=== PATIENT | female | born 1935 | race Caucasian/White ===

== ENCOUNTER 2016-05-15 10:20 | Outpatient (CLI) | payer OTHER ==
--- NOTE | 2016-05-15 11:25 | DIAGNOSTIC IMAGING REPORT ---
PROCEDURE: DEXA BONE DENSITY STUDY CLINICAL INDICATION: OSTEOPENIA COMPARISON: DEXA 01/20/2010 FINDINGS: LUMBAR SPINE: Bone mineral density 1.077 g/cm2, T score 0.3 normal which represents a of 14.5% improvement from the previous study LEFT HIP: Bone mineral density 0.969 g/cm2, T score 0.2 normal which represents a 2.4% decrease from the previous study LEFT FEMORAL NECK: Bone mineral density 0.712 g/cm2, T score -1.2 osteopenia which represents a 3.3% decrease from the previous study FRACTURE RISK CALCULATION ( when applicable): 10-year fracture risk of a major osteoporotic fracture 12% and of a hip fracture 2.5% (T score greater or equal to -1.0 to: NORMAL) (T score from -1.1 to -2.4: OSTEOPENIA) (T score ess than or equal to -2.5: OSTEOPOROSIS) IMPRESSION: 1. 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
--- NOTE | 2016-05-18 10:47 | DIAGNOSTIC IMAGING REPORT ---
PROCEDURE: MG BILATERAL SCREENING W/CAD INDICATION: SCREENING TECHNIQUE: Bilateral CC and MLO digital views. COMPARISON: Mammograms 02/24/2013, 02/23/2012 and 02/10/2011. FINDINGS: Computer-aided detection applied. Moderately dense and nodular pattern. No change. IMPRESSION: 1. Negative mammogram RESULT CODE: 1- Negative. A. A negative report should not delay biopsy if a dominant or clinically suspicious mass is present. 10-15% of cancers are not identified by x-ray. B. A negative report may reinforce clinical impression. C. Adenosis and dense breasts may obscure an underlying neoplasm. D. False positive reports average 6-10%. E.. A yearly screening mammogram is recommended. A reminder letter will be scheduled.
== END 2016-05-15 23:00 ==
LOC: XR SRH 10:20
DX: Z12.31 Encounter for screening mammogram for malignant neoplasm of breast (principal); M85.88 Other specified disorders of bone density and structure, other site